=== PATIENT | female | born 1995 | race Caucasian/White ===

== ENCOUNTER 2024-01-24 07:18 | Emergency (ER) | payer BC, OTHER ==
[2024-01-24] MEDS ORDERED: KETOROLAC 30 MG/ML INJ ONE (08:00)
[2024-01-24] MEDS ORDERED: NA CHLORIDE 0.9% 1,000 ML ONE (08:00)
[2024-01-24] MEDS ORDERED: ONDANSETRON 4 MG/2 ML VIAL ONE (08:00)
[2024-01-24 08:09] LABS: Absolute Eosinophils 0.7 K/uL (0-0.5); Absolute Lymphocytes (CBC) 1.6 K/uL (0.7-4.9); Absolute Monocytes 0.5 K/uL (0.1-1.3); Absolute Neutrophil 8.4 K/uL (1.8-8.0); Basophils % 0.3 % (0-1.3); Eosinophils % 6.3 % (0-4.4); Hematocrit 39.5 % (36.0-45.0); Lymphocytes % 14.1 % (15.3-44.8); MCH 26.8 pg (27.0-35.0); MCHC 32.9 g/dL (32.0-36.0); MCV 81.2 fL (80-100); MPV 6.5 fL (7.6-11.3); Monocytes % 4.3 % (3.3-12.3); Nucleated Red Blood Cells % 0.1 % (0-0); Platelets 450 thou/uL (152-406); RBC Red Blood Cell Count 4.87 M/uL (3.86-4.86); Red Cell Distribution Width 14.1 % (12.1-15.2)
[2024-01-24 08:28] LABS: Sqamous Epithelial <5 /HPF (None Seen); Urine Bacteria None Seen /HPF (<20); Urine Bilirubin NEGATIVE (Negative); Urine Blood Negative (Negative); Urine Clarity Turbid (Clear); Urine Color Light-Yellow (Yellow); Urine Culture Reflex Order NOT NEEDED; Urine Glucose NEGATIVE (Negative); Urine Ketones NEGATIVE (Negative); Urine Microscopic Reflex YN ORDER UMIC; Urine Mucus Slight /HPF (None Seen); Urine Nitrite NEGATIVE (Negative); Urine Protein NEGATIVE (Negative); Urine RBC None Seen /HPF (None Seen); Urine Urobilinogen Normal (Normal); Urine WBC <5 /HPF (<5); Urine Yeast (Budding) Trace /HPF (None Seen); Urine pH 5.5 (5.0-7.0)
[2024-01-24 08:29] LABS: Albumin 3.6 g/dL (3.4-5.0); Albumin/Globulin Ratio 0.9 (1.1-1.8); Bilirubin Total 0.3 mg/dL (0.2-1.0); Globulin 3.8 g/dL (2.3-3.5); Protein, Total 7.4 g/dL (6.4-8.2)
--- NOTE | 2024-01-24 09:21 | ER ---
Nurse's Notes [facility] Name: Shireen Gomez Age: 28 yrs Sex: Female : 1995 Arrival Date: 01/24/2024 Time: 07:18 Bed 15 Private MD: Diagnosis: Nausea with vomiting, unspecified;Constipation, unspecified;Abdominal pain, Generalized;Medication side effect Presentation: 01/23 07:31 Chief complaint: Patient states: "I increased my Semaglutide dose 3 weeks ago and the mb9 past 48 hrs I've been N/V, constipated, and having lower abdominal pain.". Coronavirus screen: Vaccine status: Patient reports being unvaccinated. Ebola Screen: No symptoms or risks identified at this time. Initial Sepsis Screen: Does the patient meet any 2 criteria? No. Patient's initial sepsis screen is negative. Does the patient have a suspected source of infection? No. Patient's initial sepsis screen is negative. Risk Assessment: Do you want to hurt yourself or someone else? Patient reports no desire to harm self or others. Onset of symptoms was January 24, 2024. 07:31 Acuity: VIVIAN 3 mb9 07:31 Method Of Arrival: Ambulatory mb9 Triage Assessment: 07:33 General: Appears uncomfortable, Behavior is calm, cooperative. Pain: Complains of pain mb9 in abdomen Pain radiates to LLQ and RLQ Quality of pain is described as pressure, Pain began 2-3 days ago. Is continuous. EENT: No signs and/or symptoms were reported regarding the EENT system. Neuro: [place] Agitation-Sedation Scale (RASS): 0 - Alert and Calm Level of Consciousness is awake, alert, obeys commands, Oriented to person, place, time, situation, Appropriate for age. Cardiovascular: Patient's skin is warm and dry. Respiratory: Airway is patent Respiratory effort is even, unlabored, Respiratory pattern is regular, symmetrical, Breath sounds are clear bilaterally. GI: Abdomen is round non-distended, Bowel sounds present X 4 quads. Abd is soft and non tender X 4 quads. GI: Reports upper abdominal pain, constipation, nausea, vomiting. : No signs and/or symptoms were reported regarding the genitourinary system. Derm: Skin is pink, warm \\T\\ dry. Musculoskeletal: Range of motion: intact in all extremities. 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 - Infectious Disease History:: Denies. - Social history:: Smoking status: Patient denies any tobacco usage or history of. Screenin:24 [facility] ED Fall Risk Assessment (Adult) History of falling in the last 3 months, mb9 including since admission No falls in past 3 months (0 pts) Confusion or Disorientation No (0 pts) Intoxicated or Sedated No (0 pts) Impaired Gait No (0 pts) Mobility Assist Device Used No (0 pt) Altered Elimination No (0 pt) Score/Fall Risk Level 0 - 2 = Low Risk Oriented to surroundings, Maintained a safe environment, Educated pt \\T\\ family on fall prevention, incl call for assistance when getting out of bed. Abuse screen: Denies threats or abuse. Nutritional screening: No deficits noted. Tuberculosis screening: No symptoms or risk factors identified. Assessment: 07:34 Reassessment: see triage assessment. mb9 08:49 Reassessment: Patient appears in no apparent distress at this time. Patient and/or mb9 family updated on plan of care and expected duration. Pain level reassessed. Patient is alert, oriented x 3, equal unlabored respirations, skin warm/dry/pink. Patient states feeling better. Patient states symptoms have improved. 09:16 Reassessment: pt passed PO challenge. ERP notified. mb9 09:28 Reassessment: No changes from previously documented assessment. Patient and/or family mb9 updated on plan of care and expected duration. Pain level reassessed. Patient is alert, oriented x 3, equal unlabored respirations, skin warm/dry/pink. Vital Signs: 07:31 BP 122 / 65; Pulse 90; Resp 18; Temp 97.5; Pulse Ox 100% on R/A; Weight 104.33 kg; mb9 Height 5 ft. 2 in. ; Pain 7/10; 08:56 BP 117 / 71; Pulse 88; Resp 16; Pulse Ox 100% on R/A; mb9 07:31 Body Mass Index 42.07 (104.33 kg, 157.48 cm) mb9 07:31 Pain Scale: Adult mb9 ED Course: 07:21 Patient arrived in ED. im 07:24 Daniela Townsend, RN is Primary Nurse. mb9 07:24 Arm band placed on. mb9 07:25 Placed in gown. Bed in low position. Call light in reach. Side rails up X 1. Provided mb9 Education on: press call light if needing anything. Client placed on continuous cardiac and pulse oximetry monitoring. NIBP monitoring applied. 07:28 Jaycee Rasheed MD is Attending Physician. sd2 07:32 Triage completed. mb9 07:35 No provider procedures requiring assistance completed. mb9 07:59 Initial lab(s) drawn, by me, sent to lab. Inserted saline lock: 20 gauge in right mb9 antecubital area, using aseptic technique. Blood collected. Flushed with 10 mL NS. 08:09 Urine collected: clean catch specimen, cloudy. [id number] 09:28 IV discontinued, intact, bleeding controlled, No redness/swelling at site. Pressure mb9 dressing applied. Administered Medications: 08:06 Drug: Ketorolac IVP 15 mg IVP once Route: IVP; Site: right antecubital; mb9 08:35 Follow up: Response: No adverse reaction mb9 08:10 Drug: NS 0.9% IV 1000 ml IV at 1 bolus Per protocol; 1000 mL bolus Route: IV; Rate: 1 mb9 bolus; Site: right antecubital; 08:57 Follow up: Response: No adverse reaction; IV Status: Completed infusion mb9 08:10 Drug: Ondansetron IVP 4 mg IVP once; over 2 minutes Route: IVP; Site: right antecubital;mb9 08:35 Follow up: Response: No adverse reaction mb9 Medication: 07:25 VIS not applicable for this client. mb9 Outcome: 09:20 Discharge ordered by . sd2 09:28 Discharged to home ambulatory, mb9 09:28 Condition: stable 09:28 Discharge instructions given to patient, Instructed on discharge instructions, follow up and referral plans. Demonstrated understanding of instructions, follow-up care, medications, Prescriptions given X 1, 09:29 Patient left the ED. mb9 Signatures: Jaycee Rasheed MD MD sd2 Daniela Townsend RN RN mb9 Gina Terrazas Jess [email or web address]
--- NOTE | 2024-01-24 09:21 | EDPHYS ---
Physician Documentation [facility] Name: Shireen Gomez Age: 28 yrs Sex: Female : 1995 Arrival Date: 01/24/2024 Time: 07:18 Bed 15 Private MD: ED Physician Jaycee Rasheed HPI: 01/23 08:23 This 28 yrs old Female presents to ER via Ambulatory with complaints of Abdominal Pain, sd2 Vomiting, Constipation. 08:23 28-year-old female presents with chief complaint of generalized abdominal pain, nausea, sd2 vomiting that has been ongoing for the past 2 weeks. She reports that she has been on semaglutide for the past 4 months and increase her dose last 3 weeks ago. She reports the first week she did not have any significant symptoms but last week she had nausea, vomiting and diarrhea. Then, this week after another dose she has had nausea and vomiting again but this time with some level of constipation although she was able to have a small bowel movement this morning. Denies any fever or urinary symptoms. . 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 - Infectious Disease History:: Denies. - Social history:: Smoking status: Patient denies any tobacco usage or history of. ROS: 08:23 Constitutional: Negative for fever, chills, and weight loss, Eyes: Negative for injury, sd2 pain, redness, and discharge, Cardiovascular: Negative for chest pain, palpitations, and edema, Respiratory: Negative for shortness of breath, cough, wheezing. 08:23 MS/Extremity: Negative for injury and deformity, Skin: Negative for injury, rash, and discoloration, Neuro: Negative for headache, numbness and tingling. 08:23 Abdomen/GI: Positive for abdominal pain, nausea, vomiting, and diarrhea, constipation, Exam: 08:23 Constitutional: This is a well developed, well nourished patient who is awake, alert, sd2 and in no acute distress. Head/Face: Normocephalic, atraumatic. Eyes: EOMI, normal conjunctiva bilaterally Chest/axilla: Normal chest wall appearance and motion. Nontender with no deformity. Cardiovascular: Regular rate and rhythm with a normal S1 and S2. No gallops, murmurs, or rubs. 2+ distal pulses. Respiratory: Lungs have equal breath sounds bilaterally, clear to auscultation and percussion. No rales, rhonchi or wheezes noted. No increased work of breathing, no retractions or nasal flaring. Abdomen/GI: Soft, non-tender, with normal bowel sounds. No guarding or rebound. No evidence of tenderness throughout. Skin: Warm, dry with normal turgor. Normal color with no rashes, no lesions, and no evidence of cellulitis. MS/ Extremity: Pulses equal, no cyanosis. Neurovascular intact. Full, normal range of motion. Psych: Awake, alert, with orientation to person, place and time. Behavior, mood, and affect are within normal limits. Vital Signs: 07:31 BP 122 / 65; Pulse 90; Resp 18; Temp 97.5; Pulse Ox 100% on R/A; Weight 104.33 kg; mb9 Height 5 ft. 2 in. ; Pain 7/10; 08:56 BP 117 / 71; Pulse 88; Resp 16; Pulse Ox 100% on R/A; mb9 07:31 Body Mass Index 42.07 (104.33 kg, 157.48 cm) mb9 07:31 Pain Scale: Adult mb9 MDM: 07:28 Patient medically screened. sd2 08:23 Differential diagnosis: medication effect, GE, constipation, pancreatitis, sd2 appendicitis, diverticulitis, gastritis among others. Data reviewed: vital signs, nurses notes, lab test result(s). I considered the following discharge prescriptions or medication management in the emergency department Medications were administered in the Emergency Department. See MAR. Historians other than the Patient: Parent: mother at . 09:18 Counseling: I had a detailed discussion with the patient and/or guardian regarding the sd2 historical points, exam findings, and any diagnostic results supporting the discharge/admit diagnosis, lab results, the need for outpatient follow up, to return to the emergency department if symptoms worsen or persist or if there are any questions or concerns that arise at home. ED course: PO challenge passed. Pt feeling improved. Benign abdominal exam. Labs reassuring. Discussed alternative supportive care and therapeutic options while on semaglutide and returning to lower dose she was tolerating better as well as trying different injection sites and starting fiber and probiotic supplementation. She is comfortable with plan for discharge and outpatient follow up and verbalizes understanding of strict return precautions. . 01/23 07:58 Order name: CBC with Diff; Complete Time: 08:30 sd2 01/23 07:58 Order name: CMP; Complete Time: 08:30 sd2 01/23 07:58 Order name: Magnesium; Complete Time: 08:30 sd2 01/23 07:58 Order name: Urinalysis w/ reflexes; Complete Time: 08:30 sd2 01/23 07:58 Order name: Lipase; Complete Time: 08:30 sd2 01/23 07:58 Order name: Test, Urine; Complete Time: 08:30 sd2 01/23 08:30 Order name: PO challenge; Complete Time: 08:49 sd2 Administered Medications: 08:06 Drug: Ketorolac IVP 15 mg IVP once Route: IVP; Site: right antecubital; mb9 08:35 Follow up: Response: No adverse reaction mb9 08:10 Drug: NS 0.9% IV 1000 ml IV at 1 bolus Per protocol; 1000 mL bolus Route: IV; Rate: 1 mb9 bolus; Site: right antecubital; 08:57 Follow up: Response: No adverse reaction; IV Status: Completed infusion mb9 08:10 Drug: Ondansetron IVP 4 mg IVP once; over 2 minutes Route: IVP; Site: right antecubital;mb9 08:35 Follow up: Response: No adverse reaction mb9 Disposition Summary: 01/24/24 09:20 Discharge Ordered Problem: new sd2 Symptoms: have improved sd2 Condition: Stable sd2 Diagnosis - Nausea with vomiting, unspecified sd2 - Constipation, unspecified sd2 - Abdominal pain, Generalized sd2 - Medication side effect sd2 Followup: sd2 - With: Private Physician - When: 1 - 2 days - Reason: Recheck today's complaints, Continuance of care, Re-evaluation by your physician Discharge Instructions: - Constipation, Adult sd2 - Nausea and Vomiting, Adult sd2 - Discharge Summary Sheet mb9 Forms: - Medication Reconciliation Form sd2 - Antibiotic Education sd2 - Prescription Opioid Use sd2 - Patient Portal Instructions sd2 - Leadership Thank You Letter sd2 - Work release form mb9 Prescriptions: - ondansetron 8 mg Oral Tablet,disintegrating - take 1 tablet ORAL route every 8 hours As needed; 15 tablet; Refills: 0, sd2 Product Selection Permitted Signatures: Dispatcher [employer] Jaycee Benz MD MD sd2 Daniela Townsend RN RN mb9
[2024-01-24 09:39] VITALS: TEMP 97.5; O2SAT 100
[2024-01-24 09:45] VITALS: BP 117/71
== END 2024-01-24 09:29 | disposition home or self-care (01) ==
LOC: ER 07:18
DX: R10.84 Generalized abdominal pain (principal); T50.905A Adverse effect of unspecified drugs, medicaments and biological substances, initial encounter; R11.2 Nausea with vomiting, unspecified; K59.00 Constipation, unspecified
CPT/HCPCS: 96361; 85025; 81001; 36415; 83735; 81025; 83690; 80053; 96375; 96374; 99284; J2405; J7030